=== PATIENT | male | born 1990 | race Caucasian/White ===

== ENCOUNTER 2016-10-25 16:13 | Emergency (ER) | payer OTHER ==
[2016-10-25] MEDS ORDERED: ONDANSETRON 4 MG/2 ML VIAL IVP ONE (17:15)
[2016-10-25] MEDS ORDERED: NS 1,000 ML IV ONE (17:15)
[2016-10-25] MEDS ORDERED: ONDANSETRON 4 MG/2 ML VIAL ONE (17:16)
[2016-10-25 17:39] LABS: HEMATOCRIT 50.9 % (40.0-51.0); HEMOGLOBIN 17.6 g/dL (13.7-17.5); MEAN CELL HEMOGLOBIN 29.6 pg (27.9-34.1); MEAN CELL HEMOGLOBIN CONCENTR. 34.6 g/dL (32.4-36.7); MEAN CELL VOLUME 85.5 fL (81.5-99.8); RED BLOOD CELL COUNT 5.95 10^6/uL (4.40-6.38); RED CELL DISTRIBUTION WIDTH 11.9 % (11.5-15.2)
[2016-10-25 17:46] LABS: ANION GAP 16 mEq/L (8-16); CARBON DIOXIDE 27 mEq/l (22-31); CHLORIDE 98 mEq/L (97-110); GLOMERULAR FILTRATION RATE > 60; GLUCOSE 82 mg/dL (70-100); POTASSIUM 4.4 mEq/L (3.5-5.2); SODIUM 141 mEq/L (134-144)
[2016-10-25] MEDS ORDERED: MAGNESIUM CITRATE 300 ML BOTTLE PO ONE (17:50)
--- NOTE | 2016-10-25 17:50 | EDPHY ---
H & P Stated Complaint: sean told him partial bowel blockage-constipation x 10 days HPI/ROS: CHIEF COMPLAINT: Constipation, lower abdominal pain HISTORY OF PRESENT ILLNESS: 10 days history of constipation with no solid bowel movement. He has had small bout of liquid but no formed bowel movement or persistent diarrhea. No bloody stools. Lower abdominal pain. No upper abdominal pain. Some nausea but no vomiting . Seen on campus today at [facility], with an x-ray was performed show stool in the rectal vault. No other abnormality noted. No labs done. Took 2 fleets enema at home without improvement. No other associated complaints or modifying factors. REVIEW OF SYSTEMS: Ten systems reviewed and are negative unless otherwise noted in the HPI EXAMINATION: General Appearance: Alert, no distress Head: normocephalic, atraumatic Eyes: Pupils equal and round, no conjunctival pallor or injection ENT, Mouth: Mucous membranes moist Neck: Normal inspection, supple, non-tender Respiratory: Lungs are clear to auscultation Cardiovascular: Regular rate and rhythm Gastrointestinal: Abdomen is soft. Lower abdominal tenderness. No upper abdominal tenderness. No rigidity. No tympany. Nonacute abdomen. Neurological: A&O, nonfocal Skin: Warm and dry, no rash Extremities: Nontender, no pedal edema Psychiatric: Mood and affect normal DIFFERENTIAL DIAGNOSES: Including but not limited to: Constipation, dehydration, fecal impaction, MDM: 5:49 p.m. constipation lower abdominal pain times 10 days. Did show me an x-ray that he had done today on campus at [facility]. There does appear to be a fecal impaction present. He is taking 2 fleets enemas at home, with no improvement. He has received 1 soapsuds enema here without improvement. We will repeat this upset and I gave him a dose of Mag citrate and monitor. 6:20 p.m. I have re-evaluated the patient. He has no improvement of his symptoms with soapsuds enema x2, but he just now finishing his magnesium citrate. I told we would monitor him for 1-2 hours to see if he has any improvement. Then we will discuss discharge home with continued oral and rectal anti constipation therapy versus disimpaction here. He is resting comfortably in no acute distress 7:40 p.m. I re-evaluated the patient. He has no improvement of his constipation he is requesting CT scan for further delineation. Labs are within normal limits CT scan has been ordered at this time 8:50 notified by Radiology that there are no acute findings on the CT scan. Specifically, they were able to visualize the appendix and the organs well without any abnormality. There is some stool in the sigmoid rectum. I discussed these findings with the patient he remains comfortable. He is yet to have a bowel movement. He is comfortable with discharge home at this time and wants to be discharged home. I had a lengthy discussion with him regarding MiraLax, magnesium citrate, Colace and Fleet's enemas. He will attempt these overnight in the morning and follow up with primary care physician. Return here if symptoms worsen. Patient is comfortable with this plan and discharged home stable condition. ED Precautions: Worsening pain. Fever. Bloody stools. Bloody emesis. SUPERVISION: This patient was independently evaluated without the aide of supervising physician. Source: Patient Exam Limitations: No limitations - Personal History Current Tetanus/Diphtheria Vaccine: Unsure Current Tetanus Diphtheria and Acellular Pertussis (TDAP): Unsure - Medical/Surgical History Hx Asthma: No Hx Chronic Respiratory Disease: No Hx Diabetes: No Hx Cardiac Disease: No Hx Renal Disease: No Hx Cirrhosis: No Hx Alcoholism: No Hx HIV/AIDS: No Hx Splenectomy or Spleen Trauma: No Other PMH: denies. no surgeries - Social History Smoking Status: Never smoked Constitutional: Initial Vital Signs Temperature (C) 97.7 F 10/25/16 16:18 Heart Rate 71 10/25/16 16:18 Respiratory Rate 16 10/25/16 16:18 Blood Pressure 112/78 10/25/16 16:18 O2 Sat (%) 97 10/25/16 16:18 O2 Delivery Mode Room Air Medical Decision Making - Data Points Laboratory Results: Laboratory Results 10/25/16 17:15 10/25/16 17:15 10/25/16 17:15 WBC 6.18 10^3/uL (3.80-9.50) RBC 5.95 10^6/uL (4.40-6.38) Hgb 17.6 H g/dL (13.7-17.5) Hct 50.9 % (40.0-51.0) MCV 85.5 fL (81.5-99.8) MCH 29.6 pg (27.9-34.1) MCHC 34.6 g/dL (32.4-36.7) RDW 11.9 % (11.5-15.2) Plt Count 322 10^3/uL (150-400) Sodium 141 mEq/L (134-144) Potassium 4.4 mEq/L (3.5-5.2) Chloride 98 mEq/L (97-110) Carbon Dioxide 27 mEq/l (22-31) Anion Gap 16 mEq/L (8-16) BUN 16 mg/dL (7-23) Creatinine 1.0 mg/dL (0.7-1.3) Estimated GFR > 60 Glucose 82 mg/dL (70-100) Calcium 10.0 mg/dL (8.5-10.4) Medications Given: Discontinued Medications Sodium Chloride (Ns) 1,000 mls @ 0 mls/hr IV ONCE ONE PRN Reason: Wide Open Stop: 10/25/16 17:16 Last Admin: 10/25/16 17:19 Dose: 1,000 mls Magnesium Citrate (Magnesium Citrate) 300 ml PO ONCE ONE Stop: 10/25/16 17:51 Last Admin: 10/25/16 17:57 Dose: 300 ml Ondansetron HCl (Zofran) 4 mg IVP EDNOW ONE Stop: 10/25/16 17:16 Last Admin: 10/25/16 17:19 Dose: 4 mg Departure - Departure Disposition: Home, Routine, Self-Care Clinical Impression: Constipation Qualifiers: Qualifier Code: (K59.00) Constipation, unspecified Abdominal pain Qualifiers: Qualifier Code: (R10.84) Generalized abdominal pain Condition: Good Instructions: Constipation (ED), Magnesium Citrate (By mouth), Polyethylene Glycol 3350 (By mouth), Laxative, Stool Softeners (By mouth) Referrals: NONE *PRIMARY CARE P,. [Primary Care Provider] - As per Instructions Kina Mota MD [Medical Doctor] - As per Instructions
[2016-10-25] MEDS ORDERED: IOPAMIDOL (ISOVUE-300) 100 ML BTL IV ONE (19:45)
--- NOTE | 2016-10-25 20:56 | CT ---
CT Scan of the Abdomen and Pelvis (With Contrast) Clinical Indications: Lower abdominal pain Technique: 90 mL of Isovue 300 were given intravenously by machine power injection. Multidetector he lical CT imaging was performed from the diaphragm to the symphysis pubis. Dose reduction techniques w ere utilized. Findings: CT ABDOMEN: Lung bases are clear. Liver, spleen, pancreas, and kidneys enhance normally. No intraperi toneal air or fluid. CT PELVIS: The appendix is well-visualized the right lower quadrant and is normal. No peritoneal free fluid. No masses. Impression: Normal CT examination of the abdomen and pelvis. Results called to Ivan Collins PA-C, at the time of the dictation.
[2016-10-25 21:26] VITALS: BP 128/78; PULSE 70; RESP 14; TEMP 97.9; O2SAT 94
== END 2016-10-25 21:25 | disposition home or self-care (01) ==
DX: K59.00 Constipation, unspecified (principal)
CPT/HCPCS: 96374; J2405; Q9967

== ENCOUNTER 2016-10-27 15:59 | Emergency (ER) | payer OTHER ==
[2016-10-27 16:27] VITALS: TEMP 97.9; O2SAT 94
--- NOTE | 2016-10-27 17:36 | EDPHY ---
H & P Stated Complaint: Constipated - Personal History Current Tetanus/Diphtheria Vaccine: Yes Current Tetanus Diphtheria and Acellular Pertussis (TDAP): Yes - Medical/Surgical History Hx Asthma: No Hx Chronic Respiratory Disease: No Hx Diabetes: No Hx Cardiac Disease: No Hx Renal Disease: No Hx Cirrhosis: No Hx Alcoholism: No Hx HIV/AIDS: No Hx Splenectomy or Spleen Trauma: No Other PMH: denies. no surgeries - Social History Smoking Status: Never smoked Time Seen by Provider: 10/27/16 17:15 HPI/ROS: CHIEF COMPLAINT: I am still constipated HISTORY OF PRESENT ILLNESS: 25-year-old male generally healthy complaining of continued constipation, last bowel movement was 12 days ago. Seen in the emergency department 2 days ago, had CT imaging showing a normal appendix, discharged home . States that he has been to [facility] since including this morning, had repeat x-rays and they recommended he follow up with GI however next GI appointment was in 3 weeks. He comes to the ER complaining of continued constipation. He has abdominal cramping with eating. He is passing flatus. No nausea or vomiting. He would like to have emergency department GI consultation. He denies: Fever, chills, back or flank pain, abdominal distension, testicular pain, nausea or vomiting, back pain, radiculopathy, saddle anesthesia, urinary incontinence or retention. PRIMARY CARE PROVIDER:[email or web address] REVIEW OF SYSTEMS: A ten point review of systems was performed and is negative with the exception of the items mentioned in the HPI PAST MEDICAL & SURGICAL HISTORY: No history of abdominal surgeries or chronic abdominal pathology SOCIAL HISTORY: law student PHYSICAL EXAM (Prior to examination, patient consented to physical exam, hands were washed and my usual and customary physical exam procedures followed) 1) GENERAL: Well-developed, well-nourished, alert and oriented. Appears nontoxic . Working on his phone 2) HEAD: Normocephalic, atraumatic 3) HEENT: sclera anicteric 4) NECK: Full range of motion, no meningeal signs. 5) LUNGS: Clear auscultation bilaterally, no wheezes, no rhonchi, no retractions. 6) HEART: Regular rate and rhythm, no murmur, no heave, no gallop.] 7) ABDOMEN: flat, not distended, No guarding, no rebound, no focal tenderness, negative McBurney's, negative Almazan's, negative Rovsing's, negative peritoneal sign, I am unable to elicit any abdominal pain on exam 8) MUSCULOSKELETAL: Moving all extremities, no focal areas of tenderness, no obvious trauma. No peripheral edema or discoloration. 9) BACK: no midline vertebral tenderness. Patella and Achilles reflexes intact to bilateral strength 5/5 10) SKIN: No rash, no petechiae. 11)RECTAL (with nurse Ricarda at bedside): With a lubricated glove on, he has normal rectal tone, no stool in the rectal vault. DIFFERENTIAL DIAGNOSIS: In no particular order including but not limited to constipation, acute appendicitis, bowel obstruction, spinal pathology such as cauda equina (Mateo Velasquez) Constitutional: Initial Vital Signs Temperature (C) 36.6 C 10/27/16 16:23 Heart Rate 71 10/27/16 16:23 Respiratory Rate 14 10/27/16 16:23 Blood Pressure 123/77 H 10/27/16 16:23 O2 Sat (%) 94 10/27/16 16:23 O2 Delivery Mode Room Air Allergies/Adverse Reactions: No Known Allergies Allergy (Unverified 10/27/16 16:23) Home Medications: Medication Instructions Recorded Peg 3350/Na Sulf,Bicarb,Cl/KCl 1,000 ml PO ONCE #4000 ml 10/27/16 [Golytely (RX)] Medical Decision Making - Diagnostics Imaging: Abdomen Single View HISTORY: Abdomen pain. Constipation. COMPARISON: CT October 25, 2016. FINDINGS: There is a mild amount of stool in the ascending and descending colon. No evidence for an obstruction. No evidence for a small bowel obstruction or bowel wall thickening. No evidence for organomegaly or abnormal abdominal calcification. IMPRESSION: Nonobstructive bowel gas pattern. Mild constipation. Results discussed with Tank Velasquez PA-C. Dictated By: Dagoberto Figueroa MD Images reviewed by myself (Mateo Velasquez) ED Course/Re-evaluation: 5:20 p.m.: I have reviewed the patient's old medical records including his CT scan from 2 days ago. Prior to my examining the patient he informs me that he would like to speak with a [facility] hospice home care coordinator in the emergency department. 5:34 p.m.: The patient requested that I speak with a family friend/ hospice home care coordinator in [place] , Dr. Rudd. This was prior to my examining the patient. Prior to speaking with this individual the patient signed a release of medical information. The 3 of us spoke on speaker phone. Dr Rudd recommended a Gastrografin enema study and if this was negative to be discharged with GoLYTELY. Patient requests this Gastrografin enema study. Dr Rudd also discussed possibility of parasitic infection which, he states, would be diagnosed on endoscopic evaluation. 5:40 pm: Patient examined. He has a flat, nontender abdomen with no McBurney's point pain. 6:04 p.m.: The patient requested to speak me privately. He appeared upset, stating that I did not use lubricant when I performed his rectal examination. I informed him that the patient's nurse, Ricarda, was at bedside at all times during the rectal exam procedure and did witness me placing lubricant on my gloved finger. I then removed the used pack of lubricant from the trash can and the used glove out of the trash can and provided this to the patient who also palpated the used glove with gel on it. He appeared to feel reassured that I had used lubricant on his rectal examination. Informed him that because of his multiple enemas he may be experiencing increased sensitivity in this area. 6:26 p.m.: Phone consultation with GI Dr. Jorge Kaminski. Patient will need to call to set up an appointment as it is currently after clinic hours. 6:45 p.m. Reexamination. Abdomen remains flat, no McBurney's point pain. I discussed his plain KUB xray with him and explained my conversation with radiologist Dr Figueroa regarding gastrograffin enema study. Specifically, Dr Figueroa felt that because of patient's mild constipation on plain xray, the benefits of further radiation imaging studies did not outweigh the risks. I explained this to the patient and he concurred. I explained to the patient my decision making process and differential diagnosis. I empathized with his ongoing symptoms. Informed him that I thought that acute surgical abdominal pathology, acute appendicitis, acute bowel obstruction, spinal pathology such as cauda equina were less than likely at this time. I did not think that emergency department GI consultation was currently indicated, but did inform him that I spoke with Dr Jorge Kaminski so that the patient could possibly get an expedited appointment. The patient was also seen by Dr Franco, please see his independent note. Patient is discharged appearing well with a prescription for GoLytely and instructions on how to mix up and administer. All questions and concerns addressed by myself, Dr Franco and nursing staff. Patient discharged appearing satisfied. My usual and customary strict return abdominal precautions provided to patient. (Mateo Velasquez) Other Provider: PHYSICIAN DOCUMENTATION: The patient was evaluated and managed by the Physician Clinical Scientist and myself. I have reviewed the chart; in addition, I personally interviewed the patient myself at 1900. History confirmed as no bowel movement for 12 days. Patient appears comfortable, using his laptop computer in the room. Discussed workup to date, differential, followup plan. Recent CT reviewed and x-ray from today. I agree that the most reasonable course of action at this time is to treat him for his constipation, with outpatient GI follow-up. I am the secondary supervising physician. (Bayron Franco) Departure - Departure Disposition: Home, Routine, Self-Care Clinical Impression: Constipation Qualifiers: Constipation type: unspecified constipation type Qualifier Code: (K59.00) Constipation, unspecified Condition: Good Instructions: Constipation (ED) Additional Instructions: Return to the ER immediately if you have abdominal pain, if you cannot pass flatus, if you vomit, if you have back pain, if you have fever or chills, if you have urinary abnormality, or if you experience any other symptoms that concern you. Call Dr Jorge Kaminski's office in the morning to setup an appointment in the next 2-3 days. Referrals: Jorge Kaminski MD [Medical Doctor] - 2-3 days, call for appt. (Dr. Jorge Kaminski is a hospice home care coordinator) Prescriptions: Peg 3350/Na Sulf,Bicarb,Cl/KCl [Golytely (RX)] 1,000 ml PO ONCE #4000 ml
--- NOTE | 2016-10-27 18:35 | DX ---
Abdomen Single View HISTORY: Abdomen pain. Constipation. COMPARISON: CT October 25, 2016. FINDINGS: There is a mild amount of stool in the ascending and descending colon. No evidence for an obstruction. No evidence for a small bowel obstruction or bowel wall thickening. No evidence for o rganomegaly or abnormal abdominal calcification. IMPRESSION: Nonobstructive bowel gas pattern. Mild constipation. Results discussed with Tank Velasquez PA-C.
[2016-10-27 19:28] VITALS: BP 121/89; PULSE 63; RESP 16
== END 2016-10-27 19:26 | disposition home or self-care (01) ==
DX: K59.00 Constipation, unspecified (principal)

== ENCOUNTER → 2016-11-25 | Outpatient (CLI) | payer OTHER ==
[~2016-11-25] MED LIST: IOPAMIDOL (ISOVUE-300) 100 ML BTL IV ONE
== END ==
LOC: FIMAGING 16:52
PROVIDERS: ATTEND Internal Medicine Gastroenterology
DX: Z03.89 Encounter for observation for other suspected diseases and conditions ruled out (principal)
CPT/HCPCS: Q9967